=== PATIENT | male | born 1955 | race African-American/Black ===

== ENCOUNTER 2020-05-26 09:37 | Outpatient (CLI) | payer BC | END 2020-05-26 09:38 | disposition home or self-care (01) | LOC: BICULT 09:37 | PROVIDERS: ATTEND Family Medicine | DX: R31.9 Hematuria, unspecified (principal); N28.1 Cyst of kidney, acquired | CPT/HCPCS: 76770 ==

== ENCOUNTER 2021-06-14 07:48 | Outpatient (CLI) | payer MEDICARE | END 2021-06-14 07:49 | disposition home or self-care (01) | LOC: BICCT 07:48 | PROVIDERS: ATTEND Family Medicine | DX: R31.9 Hematuria, unspecified (principal) | CPT/HCPCS: 74178 ==